=== PATIENT | male | born 1945 | race Caucasian/White ===

== ENCOUNTER 2024-09-28 14:23 | Emergency (ER) | payer MEDICARE, BC, SELFPAY ==
[2024-09-28 15:01] VITALS: BP 164/81; PULSE 92; RESP 18; TEMP 36.6; O2SAT 95; BMI 29.7
--- NOTE | 2024-09-28 15:22 | XR_ITS ---
Examination: Wrist, left 3 views Technique: Wrist AP, oblique, lateral 3 views Date and time of exam: September 18, 2024 1538 hours INDICATIONS: Patient fell 2 hours ago with injury to the wrist, wrist pain. FINDINGS: Acute severely comminuted fracture distal radial metaphysis, dorsal displacement of the distal fracture fragment one shaft width The ulna projects volar to the proximal carpal row on the lateral view Displaced ulnar styloid tip fracture IMPRESSION: Acute markedly displaced fracture distal radial metaphysis The ulna projects volar to the carpal bones on the lateral view, attention to the ulna recommended on the post reduction films
--- NOTE | 2024-09-28 15:24 | PD.EDRME ---
Rapid Medical Screening Exam RME Arrival date/time: 09/28/24 14:23 This is a 79-year-old male who presented to the emergency department with complaints of fusion injury left wrist. Possible open. Visible dislocation. I have greeted and performed a focused initial assessment of this patient. Initial appropriate labs ordered at this time. A comprehensive ED assessment and evaluation of the patient and analysis of all test and completion of medical decision making process will be conducted by additional ED provider. Chief Complaint: Wound/Laceration Time Seen by Provider: 09/28/24 14:59 Vital signs: Vital Signs Temperature 98 F 09/28/24 15:01 Pulse Rate 92 09/28/24 15:01 Respiratory Rate 18 09/28/24 15:01 Blood Pressure 164/81 H 09/28/24 15:01 Pulse Oximetry (%) 95 09/28/24 15:01 Oxygen Delivery Method Room Air 09/28/24 15:01
--- NOTE | 2024-09-28 15:31 | PD.EDWOUND ---
ED Wound/Laceration-RME/HPI General Chief Complaint: Wound/Laceration Stated Complaint: LACERATION TO LEFT WRIST, HIT ON LADDER Time Seen by Provider: 09/28/24 14:59 Arrival date/time: 09/28/24 14:23 RME / HPI RME / HPI narrative: 79-year-old male patient came in for evaluation regarding left wrist injury. Patient sustained a fall on a ladder, resulting into 0.5 punctured wound to the left ulnar side of the wrist, with significant bruising and deformity. Patient denies any LOC denies any headache denies any neck pain patient is ambulatory. Tetanus vaccination is up-to-date. Related Data Previous Rx's ?Medication ?Instructions ?Recorded cephalexin 500 mg capsule 500 mg PO Q6H 7 days #28 caps 09/28/24 ibuprofen 800 mg tablet 800 mg PO TID PRN pain #30 tabs 09/28/24 ketorolac 10 mg tablet 10 mg PO TID PRN pain #20 tabs 09/28/24 Allergies Allergy/AdvReac Type Severity Reaction Status Date / Time No Known Allergies Allergy Verified 09/28/24 14:30 Review of Systems Review of Systems Narrative Review of Systems: Review of system reviewed and within normal limits except mentioned in HPI ED Exam Narrative Physical exam: VITAL SIGNS: Reviewed. GENERAL APPEARANCE: Alert and interactive, follows commands, no acute distress, HEAD AND FACE: Non-traumatic. ENT: PERRL, pink conjunctivitis, eyelid no trauma, Mucous membrane moist. NECK: Supple, nontender, no nuchal rigidity. CHEST: No tenderness, no crepitus, no paradoxical movement, no retractions. LUNGS: Clear, well ventilated, symmetric, no rales, no wheezing, no ronchi, no stridor, good breath sounds bilaterally. HEART: Regular rate, regular rhythm, no murmur, no gallops. ABDOMEN: Soft, positive bowel sounds, nondistended, no guarding, nontender, no rebound, no masses, RECTAL: Deferred. GENITAL: Deferred. NEUROLOGICAL: Gross motor function intact sensory function intact, Appropriate for age. MUSCULOSKELETAL: low back nontender, full range of motion. EXTREMITIES: 0.5 cm puncture wound to the ulnar side of the wrist with deformity, limitation range of motion. Full range of motion of the fingers. SKIN: Color pink, dry, no rash, no lacerations, no abrasions, no contusions. LYMPHATICS: Deferred. Course Quality Measures none Orders Category Date Time Status XR wrist LT 2V Stat Exams 09/28/24 18:13 Completed XR wrist comp LT min 3V Stat Exams 09/28/24 15:22 Completed Morphine Inj Med 09/28/24 15:31 Discontinued 4 mg IVP X1 ONE Ondansetron Odt [Zofran Odt] Med 09/28/24 15:30 Discontinued 4 mg PO X1 ONE ceFAZolin/D5W 2 GM IV [Ancef 2gm Ivpb] Med 09/28/24 15:30 Discontinued 2 gm in 100 ml IV X1 Vital Signs Vital signs: Vital Signs Temperature 98 F 09/28/24 15:01 Pulse Rate 92 09/28/24 15:01 Respiratory Rate 18 09/28/24 15:01 Blood Pressure 164/81 H 09/28/24 15:01 Pulse Oximetry (%) 95 09/28/24 15:01 Oxygen Delivery Method Room Air 09/28/24 15:01 Wound / Laceration MDM Narrative MDM Narrative:: 86-year-old female patient with significant history of hypertension came in for evaluation regarding left lower abdominal pain. This been ongoing for the last 2 days, radiating to the left flank, described as sharp pain, severity 8 out of 10. Denies any fever vomiting diarrhea constipation dysuria hematuria or other complaints. X-ray of the left wrist showed displaced fracture of the distal radius, and ulnar styloid fracture. There is also an open wound to the lateral aspect of the wrist. Wound cleansed with skin cleanser, and NS at least 2 L, and 1 suture applied. After lidocaine anesthesia was applied also. Patient also had hematoma block. Close reduction was done by me using weights and traction, and repeat x-ray showed significant improvement of the fracture. Patient received IV cefazolin, IV morphine also. I contacted Dr. Castorena, orthopedic surgeon on-call, who told me to asked the patient to follow-up in his clinic this Wednesday. Plan of care discussed with the patient. Distal neurovascular status intact post reduction and splinting. Patient data External records reviewed:: None Clinical information provided by:: patient and family Social determinants that could affect healthcare access:: none Patient has the following chronic illnesses:: None How is presenting disease/condition affected by chronic disease/condition?: no chronic disease Evaluation data The following diagnostics were reviewed and interpreted by me:: radiology exam(s) Lab and/or radiology exams considered but not ordered:: None Interpretation Summary: X-ray of the wrist showed displaced fracture of the distal radius and ulnar styloid fracture. Postreduction x-ray showed significant improvement of the fracture Medications / Prescriptions Medications or Prescriptions considered but not ordered:: None Medication administrations:: Medication Administration History Discontinued Medications Cefazolin Sodium (Ancef 2gm Ivpb) 2 gm in 100 mls @ 200 mls/hr IV X1 ONE Stop: 09/28/24 15:59 Last Admin: 09/28/24 16:59 Dose: 200 mls/hr Documented By: GM Morphine Sulfate (Morphine Sulf Inj 10 Mg/Ml Vial) 4 mg IVP X1 ONE Stop: 09/28/24 15:32 Last Admin: 09/28/24 16:59 Dose: 4 mg Documented By: GM Ondansetron HCl (Ondansetron Odt 4 Mg Tabrap) 4 mg PO X1 ONE; Protocol Stop: 09/28/24 15:31 Last Admin: 09/28/24 16:55 Dose: 4 mg Documented By: GM Morphine, cefazolin, and Zofran Consultations Consultation(s) initiated? (list below): Yes Consultation #1 (Physician, Specialty, Details): Dr. Castorena, orthopedic surgeon on-call, thank you Dr. Castorena Diagnosis Wound Differential Diagnosis: laceration and other (Distal radius fracture, ulnar styloid fracture) Most likely diagnosis given after review of the tests above:: Distal radius fracture, ulnar styloid fracture Admission Indicated Admission indicated?: not indicated Explain why admission is indicated or not indicated:: Stable Admission Request Was there a request for admission?: No Disposition Plan Disposition Plan: Discharge Discharge Attestation Discharge Attestation: The patient and all family members were given an opportunity to ask questions and understood the discharge instructions. Discharge instructions specifically effects, indications for sooner follow up or return to the emergency department, and the expected course of current diagnosis. Patient condition: Stable Discharge Plan Plan Patient Disposition: HOME (Self Care) Disposition Comment: Stable Prescriptions/Referrals Prescriptions/Med Rec: New cephalexin 500 mg capsule 500 mg PO Q6H 7 Days Qty: 28 0RF ketorolac 10 mg tablet 10 mg PO TID PRN (Reason: pain) Qty: 20 0RF Rx Instructions: maximum total duration of 5 days from all oral, intranasal, or parenteral formulations ibuprofen 800 mg tablet 800 mg PO TID PRN (Reason: pain) Qty: 30 0RF Referrals: HANSEL RAMIREZ [Primary Care Provider] - In 1 week Problem List Clinical Impression: Distal radius fracture, left, Fracture of ulnar styloid, Open wound of wrist Patient/Caregiver Discharge Instructions Discharge Activity: activity as tolerated Education Materials: ED Fracture, Upper Extremity Additional Instructions: Thank you for the opportunity for serving you today. You are stable for discharged . You are advised to: Follow-up with Dr Castorena, orthopedic surgeon telephone number [phone] please call tomorrow morning or follow-up in [place] office this coming Wednesday at 9 AM Return to ED for worsening of symptoms Increase oral fluids Take medication as prescribed Do not remove the splint until seen by orthopedic surgeon Print Language: Telugu Stand Alone Forms: Magdalena Award Info., Patient Portal Info Letter MICHELE/ROYCE Supervising Physician MICHELE/ROYCE Supervising Physician: MD Jacob
[2024-09-28 16:31] VITALS: BP 173/104; PULSE 95; RESP 18; TEMP 36.7; O2SAT 97
[2024-09-28] MEDS: ONDANSETRON ODT 4 MG TABRAP PO (16:55)
[2024-09-28] MEDS: MORPHINE SULF INJ 10 MG/ML VIAL 4 MG IVP (16:59)
[2024-09-28] MEDS: ceFAZolin/D5W 2 GM IV 2 GM/100 ML BAG IV (16:59)
--- NOTE | 2024-09-28 18:13 | XR_ITS ---
Examination: Left wrist 2 views TECHNIQUE: AP lateral left wrist 2 views Exam date and time: September 28, 2024 1852 hours INDICATIONS: Acute comminuted displaced fracture distal radial metaphysis on films today September 28, 2024 1540 hours, patient fell, post reduction films FINDINGS: Improvement in alignment comminuted fracture distal radial metaphysis Dorsal displacement of the distal radius fracture fragment approximately 10 mm and on the AP view approximately 4.4 mm offset Carpal bones intact Distal ulna is not displaced on the lateral view IMPRESSION: Significant improvement in alignment comminuted fractures distal radial metaphysis
== END 2024-09-28 20:52 | disposition home or self-care (01) ==
PROVIDERS: Emergency Provider Emergency Medicine; PCP Family Medicine
DX: S52.612A Displaced fracture of left ulna styloid process, initial encounter for closed fracture (principal); S52.502A Unspecified fracture of the lower end of left radius, initial encounter for closed fracture; S61.502A Unspecified open wound of left wrist, initial encounter; W11.XXXA Fall on and from ladder, initial encounter
CPT/HCPCS: 25605; 73100; 73110; 96374; 99284; J0689; J2270; Q0162; J0690